=== PATIENT | male | born 1965 | race Caucasian/White ===

== ENCOUNTER → 2018-08-18 | Day surgery (SDC) | payer BC ==
[~2018-08-18] MED LIST: ALBUTEROL SULFATE 2.5 MG/3 ML NEBU. NEB PRN; ATROPINE 0.5 MG/5 ML DISP.SYRIN. IV PRN; IV RINGERS SOLUTION,LACTATED 1,000 ML IV SCH; LIDOCAINE 1% PF 30 ML VIAL. ONE; LIDOCAINE 2% PF Vial for OR 5 ML VIAL. ONE; NALOXONE 0.4 MG/ML VIAL. IV PRN; NEOMY/BACITR/POLYMYXIN OINT PACKET. TP ONE; ONDANSETRON PF 4 MG/2 ML VIAL. IV PRN; PROPOFOL 10,000 MCG/ML (20ML) VIAL IV ONE; PROPOFOL 40 ML IV ONE
[2018-08-18 14:55] VITALS: BP 140/92
--- NOTE | 2018-08-21 15:09 | PATHOLOGY ---
[facility] Accession Number: [id number] . 01 Material submitted: . EXCISION EXTERNAL HEMORRHOID . 01 Clinical history: . Screening colon, external hemorrhoid . 02 Diagnosis: "Hemorrhoid", hemorrhoidectomy: - Findings consistent with hemorrhoids. (SKM:christine; 08/21/2018) MBR/08/21/2018 . 02 Electronically signed: . Ryan Lopez MD, Pathologist NPI- [id number] . 01 Gross description: . Received in formalin labeled "Anders Corral, excision external hemorrhoid," is a langford-fitzpatrick epithelial covered tissue measuring 1.5 x 0.6 x 0.7 cm in maximum dimensions. The epithelial surfaces appear intact, without grossly apparent lesions. On cut section, the subepithelial tissue has a highly vascular appearance. The specimen is serially sectioned and entirely submitted in cassette A1. (TSD; 08/19/2018) TOB/TOB . 02 Pathologist provided ICD-10: K64.9 . 02 CPT . 455119 Specimen Comment: A courtesy copy of this report has been sent to Specimen Comment: [phone]. Specimen Comment: Report sent to Performed at: 01 [facility] [address], [place] [id number] MD Dharmesh Muñoz MD Phone: [phone] Performed at: 02 [facility] [address] [place], [place] [id number] MD Sachin Drake MD Phone: [phone]
== END | disposition home or self-care (01) ==
LOC: SURG 12:36
PROVIDERS: ATTEND Surgery
DX: K64.4 Residual hemorrhoidal skin tags (principal); K62.89 Other specified diseases of anus and rectum; K43.9 Ventral hernia without obstruction or gangrene; K64.8 Other hemorrhoids; M54.5 Low back pain; F17.200 Nicotine dependence, unspecified, uncomplicated; Z86.010 Personal history of colon polyps; Z79.899 Other long term (current) drug therapy; Z98.890 Other specified postprocedural states
CPT/HCPCS: 45378; J2001; J2704; J7120; 88304

== ENCOUNTER → 2019-10-12 | Outpatient (CLI) | payer BC ==
[2018-08-18 14:55] VITALS: BP 140/92
--- NOTE | 2019-10-12 13:36 | RAD ---
Two-view study of the right hand Clinical indications: Injured right hand 2 weeks ago. Pain in third metacarpal region. FINDINGS: No acute fracture or dislocation or lytic process evident. No periosteal reaction is evident. IMPRESSION: No acute fracture. Electronically signed by: Kumar Arvizu MD (10/12/2019 1:33 PM) [facility]
== END | disposition home or self-care (01) ==
LOC: DXRAD 09:38
PROVIDERS: ATTEND Registered Nurse
DX: M79.641 Pain in right hand (principal)
CPT/HCPCS: 73120

== ENCOUNTER 2020-08-05 23:53 | Emergency (ER) | payer SELFPAY ==
[~2020-08-05] VITALS: Ht 185.4 cm; Wt 128.2 kg
[2020-08-06 00:05] VITALS: BP 141/67
--- NOTE | 2020-08-06 00:19 | PHYS DOC ---
Past History Past Medical History: No Pertinent History Past Medical History Hx. + Positive COVID 07/08/2020 Alcohol Use: None General Adult EDM: Chief Complaint: CHEST PAIN HPI: HPI: ".. I got this chest discomfort .. here in the center.. I did have COVID about 3 weeks.... ago... Yesterday and today.. or so.. I am just still feeling short of breath.. ian feeling like when you smoke a menthol cigarette.... That burn cool feel .. or the feeling you get in your lungs.. when you inhale...after smoking a menthol cigarette." Patient is a 54 year old male who presents with above hx and complaints of chest discomfort. Discomfort in chest is central, with no radiation. Seem be more with deep inhalation. Pt. hx of positive COVID test on 07/08. Patient states fever , chills, myalgia, arthralgia, malaise have dissipated over the past week. Patient however the last couple days has felt more short of breath and a wheeze with cough. Has a slight burning cool sensation when he inhales. Does have a nonproductive cough. No recent travel outside the [place] area. No specific ill contacts. 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 Patient denies any history of blood clots with him or family members. No history of coronary artery disease with early onset with him or family members. No history of trauma. Patient denies any history of immunosuppression. No recent travel. Patient does have some complaints of sore throat. Patient does not normally get flu vaccination. Patient has not had a Pneumovax. Patient follows with [facility] for care. Review of Systems: Review of Systems: Constitutional: Denies fever or chills Eyes: Denies change in visual acuity HENT: Complains of sore throat Respiratory: Complains cough, wheezing and shortness of breath Cardiovascular: Some chest discomfort central GI: Denies abdominal pain, nausea, vomiting, bloody stools or diarrhea : Denies dysuria Musculoskeletal: Denies back pain or joint pain Integument: Denies rash Neurologic: Denies headache, focal weakness or sensory changes Endocrine: Denies polyuria or polydipsia Lymphatic: Denies swollen glands Psychiatric: Denies depression or anxiety Family History: Family History: Noncontributory to presentation Current Medications: Current Meds: See nursing for home meds Allergies: Allergies: Allergies Coded Allergies Type Severity Reaction Last Updated Verified No Known Drug Allergies 08/18/18 No Physical Exam: PE: Constitutional: Well developed, well nourished, no acute distress, non-toxic appearance. [] HENT: Normocephalic, atraumatic, bilateral external ears normal, oropharynx moist, mild injection posterior pharynx and postnasal drainage, no oral exudates, nose swollen turbinates and clear rhinorrhea Eyes: PERRLA, EOMI, conjunctiva normal, no discharge. [] Neck: Normal range of motion, no tenderness, supple, no stridor. [] Cardiovascular:Heart rate regular rhythm, no murmur [] Lungs & Thorax: Bilateral breath sounds equal apex with few scattered wheezes on auscultation [] Abdomen: Bowel sounds normal, soft, no tenderness, no masses, no pulsatile masses. [] Skin: Warm, dry, no erythema, no rash. [] Back: No tenderness, no CVA tenderness. [] Extremities: No tenderness, no cyanosis, no clubbing, ROM intact, no edema. No cording in legs. Neurologic: Alert and oriented X 3, normal motor function, normal sensory function, no focal deficits noted. [] Psychologic: Affect anxious, judgement normal, mood normal. [] Current Patient Data: Vital Signs: Vital Signs Date Time Temp Pulse Resp B/P (MAP) Pulse Ox O2 Delivery O2 Flow Rate FiO2 08/06/20 00:05 98.3 78 16 141/67 (91) 97 Room Air EKG: EKG: My interpretation EKG shows a sinus rhythm at 80 bpm. Does have some left johnson axis changes. Incomplete right bundle branch block. Some nonspecific T wave changes. But no findings of acute STEMI with contralateral changes. [00 45 minutes My interpretation EKG #2 at 2:47 shows sinus rhythm at 67 bpm. Mild leftward axis. Nonspecific T wave changes. No findings acute STEMI with contralateral changes. No significant interval change as compared to prior EKG. Radiology/Procedures: Radiology/Procedures: [][address] [place] [id number] IMAGING REPORT Signed PATIENT: JEIMY FLEMING EACCOUNT: [id number] : 1965 LOCATION: ER AGE: 54 SEX: M EXAM STATUS: REG ER ORD. PHYSICIAN: SARAH MARTIN MD REASON: cp + COVID hx PROCEDURE: PORTABLE CHEST 1V PORTABLE CHEST 1V History: Reason: cp + COVID hx / Spl. Instructions: / History: Comparison: None. Findings: No consolidation or pleural effusion. Normal heart size. No pneumothorax. Impression: 1. No acute cardiopulmonary process. Electronically signed by: Anatoly Pillai DO (08/06/2020 1:52 AM) [facility] DICTATED AND SIGNED BY: ANATOLY PILLAI DO DATE: 08/06/20 015 CC: SARAH MARTIN MD; JOSE ANDREWS ~MTH0 0 Heart Score: HEART Score for Chest Pain: HEART Score for Chest Pain Response (Comments) Value History Moderately Suspicious 1 ECG Nonspecific Repolarizatio 1 Age >45 - < 65 1 Risk Factors 1 or 2 Risk Factors 1 Troponin < Normal Limit 0 Total 4 Risk Factors: Risk Factors: DM, Current or recent (<one month) smoker, HTN, HLP, family history of CAD, obesity. Risk Scores: Score 0 - 3: 2.5% MACE over next 6 weeks - Discharge Home Score 4 - 6: 20.3% MACE over next 6 weeks - Admit for Clinical Observation Score 7 - 10: 72.7% MACE over next 6 weeks - Early Invasive Strategies Course & Med Decision Making: Course & Med Decision Making Pertinent Labs and Imaging studies reviewed. (See chart for details) Patient to use MDI 2 puffs 4 times a day. Patient take a daily aspirin. Patient to take Zithromax 250 mg daily for 5 days. Patient follow-up primary care. Patient return if any concerns. Have primary review ED work-up. Consider outpatient cardiology follow-up. Impression: 1. Chest Pain/chest discomfort 2. History of Covid + 07/08/2020 3. Suspect some sequela from prior Covid infection [] Dragon Disclaimer: Dragrashawn Disclaimer: This electronic medical record was generated, in whole or in part, using a voice recognition dictation system. Departure Departure: Referrals: JOSE ANDREWS (PCP) Scripts Azithromycin (ZITHROMAX) 250 Mg Tablet 250 MG PO DAILY for ANTI-BIOTIC for 5 Days, #5 TAB 0 Refills Prov: SARAH MARTIN MD 08/06/20 Dragon Disclaimer This chart was dictated in whole or in part using Voice Recognition software in a busy, high-work load, and often noisy Emergency Department environment. It may contain unintended and wholly unrecognized errors or omissions. SARAH MARTIN MD Aug 06, 2020 00:19
[2020-08-06 00:40] LABS: BASO # 0.1 x10^3/uL (0.0-0.2); BASO % 1 % (0-3); EOS # 0.1 x10^3/uL (0.0-0.7); EOS % 1 % (0-3); HEMATOCRIT 50.7 % (39.0-53.0); HEMOGLOBIN 16.8 g/dL (13.0-17.5); LYMPH # 2.6 x10^3/uL (1.0-4.8); LYMPH % 31 % (24-48); MEAN CORPUSCULAR HEMOGLOBIN 27 pg (25-35); MEAN CORPUSCULAR HGB CONC 33 g/dL (31-37); MEAN CORPUSCULAR VOLUME 81 fL (79-100); MONO # 0.9 x10^3/uL (0.0-1.1); MONO % 11 % (0-9); NEUT # 4.7 x10^3uL (1.8-7.7); NEUT % 56 % (31-73); PLATELET COUNT 252 x10^3/uL (140-400); RED BLOOD COUNT 6.25 x10^6/uL (4.30-5.70); WHITE BLOOD COUNT 8.4 x10^3/uL (4.0-11.0)
[2020-08-06 00:55] LABS: CALCIUM 8.7 mg/dL (8.5-10.1); CREATININE 1.2 mg/dL (0.7-1.3); GFR 62.9; POTASSIUM 3.9 mmol/L (3.5-5.1)
[2020-08-06] MEDS ORDERED: IV RINGERS SOLUTION,LACTATED 1,000 ML IV SCH (01:00)
[2020-08-06] MEDS ORDERED: ASPIRIN CHEWABLE 81 MG TABLET. PO ONE (01:00)
[2020-08-06 01:06] LABS: DIRECT BILIRUBIN 0.1 mg/dL (0.0-0.2); MAGNESIUM 2.2 mg/dL (1.8-2.4); TOTAL BILIRUBIN 0.3 mg/dL (0.2-1.0); TOTAL PROTEIN 7.6 g/dL (6.4-8.2)
--- NOTE | 2020-08-06 01:55 | RAD ---
PORTABLE CHEST 1V History: Reason: cp + COVID hx / Spl. Instructions: / History: Comparison: None. Findings: No consolidation or pleural effusion. Normal heart size. No pneumothorax. Impression: 1. No acute cardiopulmonary process. Electronically signed by: Anatoly Pillai DO (08/06/2020 1:52 AM) [facility]
[2020-08-06 02:18] LABS: BACTERIA,URINE 0 /HPF (0-FEW); BILIRUBIN,URINE NEG (NEG); CLARITY,URINE CLEAR; COLOR,URINE YELLOW; GLUCOSE,URINE NEG (NEG); NITRITE,URINE NEG (NEG); RBC,URINE 0 /HPF (0-2); SQUAMOUS EPITHELIAL CELL,UR FEW /LPF; UROBILINOGEN,URINE 0.2 mg/dL (0.2 mg/dL); WBC,URINE OCC /HPF (0-4)
[2020-08-06 02:24] LABS: BARBITURATES NEG (NEG); BENZODIAZEPINES NEG (NEG); CANNABINOIDS NEG (NEG); COCAINE NEG (NEG); METHADONE NEG (NEG); OPIATES NEG (NEG); PHENCYCLIDINE NEG (NEG)
[2020-08-06 02:28] LABS: AMPHETAMINE/METHAMPHETAMINE NEG (NEG)
[2020-08-06] MEDS ORDERED: KETOROLAC 30 MG/ML VIAL. IVP ONE (03:00)
[2020-08-06] MEDS ORDERED: methylPREDNISolone SOD SUCC PF 125 MG/2 ML VIAL. IV ONE (04:00)
[2020-08-06] MEDS ORDERED: ALBUTEROL SULFATE 8GM INHALER. INH ONE (04:00)
[2020-08-06] MEDS ORDERED: AZITHROMYCIN 250 MG TABLET. ONE (04:30)
[2020-08-06] MEDS ORDERED: AZIT250T PO (04:36)
[2020-08-06] MEDS ORDERED: AZITHROMYCIN 250 MG TABLET. PO ONE (05:00)
[2020-08-06 06:17] LABS: INFLUENZA A PATIENT NEGATIVE (NEGATIVE); INFLUENZA B PATIENT NEGATIVE (NEGATIVE)
[2020-08-06 11:20] LABS: THYROID STIM HORMONE (TSH) 3.931 uIU/mL (0.358-3.740)
--- NOTE | 2020-08-07 08:42 | EKG ---
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
--- NOTE | 2020-08-07 09:03 | EKG ---
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
== END 2020-08-06 04:55 | disposition home or self-care (01) ==
LOC: ER 23:53
DX: R07.89 Other chest pain (principal); Z20.828 Contact with and (suspected) exposure to other viral communicable diseases; Z86.19 Personal history of other infectious and parasitic diseases
CPT/HCPCS: 36415; 71045; 80048; 80061; 80076; 80307; 81001; 82550; 83690; 83735; 83880; 84443; 84484; 85025; 85379; 85610; 85730; 87070; 87804; 87880; 93005; 94640; 96361; 96374; 96375; 99285; J0456; J1885; J2930; J7120; J7613; 94664